=== PATIENT | female | born 1965 | race Caucasian/White ===

== ENCOUNTER → 2019-03-21 | Outpatient (CLI) | payer BC | LOC: LAB.O 08:54 | PROVIDERS: ATTEND Orthopaedic Surgery | DX: Z01.818 Encounter for other preprocedural examination (principal) ==

== ENCOUNTER → 2019-04-06 | Outpatient (CLI) | payer BC ==
--- NOTE | 2019-04-06 09:25 | RAD ---
EXAM DESCRIPTION: Knee,Right Complete: CR/DR/XR. CLINICAL HISTORY: 53 years FemalePAIN IN RIGHT KNEE COMPARISON: None. TECHNIQUE: 4 views AP and PA right knee standing. Lateral standing and patellofemoral sunrise view. FINDINGS: Right medial compartment is [id number] with marginal spurs. Medial subluxation of the right femur on the tibia. Lateral compartmental marginal spurs and tibial spine spurs. Prominent trochlear spurs and superior and inferior marginal spurs abutting the patellofemoral joint with medial and lateral spaces symmetric. No fractures. No abnormal radiodense objects in the soft tissues. IMPRESSION: Tricompartmental osteoarthritis right knee, severe and advanced in the medial compartment, which is [id number]. Minimal joint effusion. Electronically signed by: Chapito Aquino MD 04/06/2019 9:23 AM CDT
== END ==
LOC: RAD 08:42
PROVIDERS: ATTEND Orthopaedic Surgery
DX: M17.11 Unilateral primary osteoarthritis, right knee (principal); M25.461 Effusion, right knee

== ENCOUNTER 2019-04-17 05:38 | Inpatient (IN) | payer BC ==
--- NOTE | 2019-04-16 08:15 | HP ---
CHIEF COMPLAINT: Right knee pain. HISTORY OF PRESENT ILLNESS: Yen is a 53-year-old female who has a history of severe pain. She has had this going on at least 2-1/2 years. The pain today ranges at a 5. It has been chronic and was atraumatic in onset. Alleviating factors include rest and sitting. Aggravating factors include walking, exercise and stairs. Associated symptoms have included swelling and there have been no other surgeries. Injections help very minimally. There was some preoperative physical therapy, however, that did not give any relief. Although it is causing discuss daily, Yen has been able to continue to work. Because of ongoing pain, she has requested operative intervention. After discussing the risks, benefits and alternatives to total knee arthroplasty, she has given informed consent. PAST SURGICAL HISTORY: 1. times 2. 2. Hysterectomy. 3. Oophorectomy. 4. Cholecystectomy. MEDICATIONS: 1. Amlodipine. 2. Gabapentin. 3. Potassium. 4. Naprosyn. 5. Cymbalta. PAIN CONTRACT: None. ALLERGIES: VERSED, ZANAFLEX, HIBICLENS, FORTAZ. CODE STATUS: Full code. IMMUNIZATIONS: Up to date. SOCIAL HISTORY: Yen does smoke about one pack a day, does not drink and uses no illicit drugs. FAMILY HISTORY: None pertinent to today's complaint. REVIEW OF SYSTEMS: Negative except as indicated in the History of Present Illness. HEENT: The patient reports no symptoms. RESPIRATORY: The patient reports no symptoms. CARDIOVASCULAR: The patient reports no symptoms. GASTROINTESTINAL: The patient reports no symptoms GENITOURINARY: The patient reports no symptoms. MUSCULOSKELETAL: Negative except as noted in History of Present Illness. SKIN: The patient reports no symptoms. NEUROLOGIC: The patient reports no symptoms. PHYSICAL EXAMINATION: MENTAL STATUS: The patient is awake, alert, and is able to give a good history and participate in the physical. The patient is oriented to person, place and time. SKIN: Normal tone and turgor. HEENT: Normocephalic, atraumatic. Pupils equal, round and reactive. Mucosal membranes are moist. NECK: Normal range of motion. No thyromegaly, no lymphadenopathy. CHEST: Normal respiratory excursion. CARDIAC: Regular rate and rhythm. No murmurs, rubs or gallops. MUSCULOSKELETAL: The bilateral upper extremities show full active painless range of motion. There is intact sensation throughout. There is no deformity or malalignment. She has negative belly press, negative drop-arm test, negative Neer and negative Olsen. Reflexes are 2+ and equal bilaterally. The left lower extremity shows full range of motion of the hip. There is range of motion to full extension with flexion to about 115 degrees. There is negative anterior and posterior drawer. There is no laxity in varus or valgus. The ankle and digits show full range of motion. Strength is 5/5. The right lower extremity shows full range of motion of the hip, ankle and digits. There is full extension today with flexion to about 115 degrees. There is negative anterior and posterior drawer. There is no laxity in varus or valgus. There is negative anterior and posterior drawer. There is tenderness along the joint-line. There is moderate effusion. There is crepitus throughout the range of motion. There is severe pain with patellar mobilization. She walks with a slight antalgic gait secondary to pain. RADIOLOGY: My interpretation of the x-rays shows severe arthritis. ASSESSMENT: 1. Osteoarthritis. PLAN: The plan at this point is for total knee arthroplasty. We have discussed the risks, benefits, and alternatives to that and the patient has given informed consent. [facility][id number] [facility]
[2019-04-17] MEDS ORDERED: SODIUM CHL 0.9% 100ML MINI-BAG 100 ML IVPB ONE (05:54)
[2019-04-17] MEDS ORDERED: TRANEXAMIC ACID 1,000 MG/10 ML VIAL ONE ×2 (05:54→05:55)
[2019-04-17] MEDS ORDERED: VANCOMYCIN HCL INJ 1,000 MG VIAL IVPB ONE ×4 (05:54→19:24)
[2019-04-17] MEDS ORDERED: ceFAZolin SODIUM 1 GM VIAL ONE ×2 (05:54→06:29)
[2019-04-17] MEDS ORDERED: LACTATED RINGERS 1,000 ML ONE (05:54)
[2019-04-17] MEDS ORDERED: SODIUM CHLORIDE 0.9% 100ML 100 ML IVPB ONE (05:55)
[2019-04-17] MEDS ORDERED: SODIUM CHLORIDE 0.9% 250ML 250 ML ONE ×3 (05:55→19:24)
[2019-04-17] MEDS ORDERED: diazePAM 5 MG TAB ONE (06:07)
[2019-04-17] MEDS ORDERED: BUPIVACAINE LIPOSOME 13.3 MG/ML VIAL INJ ONE (06:30)
[2019-04-17] MEDS ORDERED: BUPIVACAINE 0.5% 30 ML VIAL INJ ONE (06:30)
[2019-04-17] MEDS ORDERED: KETAMINE HCL 100 MG/ML VIAL ONE (06:31)
[2019-04-17] MEDS ORDERED: ACETAMINOPHEN IV 1000MG 100 ML ONE (06:31)
[2019-04-17] MEDS ORDERED: fentaNYL CITRATE INJ 50 MCG/ML AMP ONE (06:32)
[2019-04-17] MEDS ORDERED: MORPHINE SULFATE *EPIDURAL* 0.5 MG/ML VIAL ONE (06:32)
[2019-04-17] MEDS ORDERED: MORPHINE SULFATE INJ 10 MG/ML VIAL IM PRN (07:00)
[2019-04-17] MEDS ORDERED: PROMETHAZINE HCL INJ 25 MG in SODIUM CHLORIDE 0.9% 50ML 50 ML IVPB PRN (07:00)
[2019-04-17] MEDS ORDERED: TRANEXAMIC ACID INJ 1,000 MG in SODIUM CHLORIDE 0.9% 100ML 100 ML IVPB ONE (07:00)
[2019-04-17] MEDS ORDERED: TEMAZEPAM 15 MG CAP PO PRN (07:00)
[2019-04-17] MEDS ORDERED: ZOLPIDEM TARTRATE 5 MG TAB PO PRN (07:00)
[2019-04-17] MEDS ORDERED: ACETAMINOPHEN 500 MG TAB PO PRN (07:00)
[2019-04-17] MEDS ORDERED: MORPHINE PCA 1 MG/ML 100 ML BAG IVPB SCH (07:00)
[2019-04-17] MEDS ORDERED: BISACODYL SUPPOSITORY 10 MG PR PRN (07:00)
[2019-04-17] MEDS ORDERED: ACETAMINOPHEN 325 MG TAB PO PRN (07:00)
[2019-04-17] MEDS ORDERED: NALOXONE HCL INJ 0.4 MG/ML VIAL IV PRN (07:00)
[2019-04-17] MEDS ORDERED: ALUMINUM & MAGNESIUM HYDROXIDE 30 ML UD PO PRN (07:00)
[2019-04-17] MEDS ORDERED: MAGNESIUM HYDROXIDE 30 ML UD PO PRN (07:00)
[2019-04-17] MEDS ORDERED: BENZOCAINE-MENTH LOZ (CEPACOL) 1 EA LOZ MT PRN (07:00)
[2019-04-17] MEDS ORDERED: SODIUM CHLORIDE 0.9% (FLUSH) 10 ML SYG IV PRN (07:00)
[2019-04-17] MEDS ORDERED: PROMETHAZINE HCL INJ 12.5 MG in SODIUM CHLORIDE 0.9% 50ML 50 ML IVPB PRN (07:00)
[2019-04-17] MEDS ORDERED: ONDANSETRON INJ 4 MG/2 ML VIAL IV PRN (07:00)
[2019-04-17] MEDS ORDERED: ROCURONIUM BROMIDE 10 MG/ML VIAL ONE (07:07)
[2019-04-17] MEDS ORDERED: ELECTROLYTE-A 1,000 ML IVS ONE (08:41)
[2019-04-17] MEDS ORDERED: LEVALBUTEROL NEBS 1.25 MG/3 ML VIAL NEB ONE (09:53)
[2019-04-17] MEDS ORDERED: MAGNESIUM SULFATE INJ 1 GM/2 ML VIAL IVPB ONE (10:00)
[2019-04-17] MEDS ORDERED: LIDOCAINE 1% 10 ML VIAL INJ ONE (10:00)
[2019-04-17] MEDS ORDERED: PROPOFOL 200 MG/20 ML VIAL IV ONE (10:00)
[2019-04-17] MEDS ORDERED: DEXAMETHASONE INJ 10 MG/ML VIAL IV ONE (10:00)
[2019-04-17] MEDS ORDERED: PHENYLEPHRINE INJ 1ML 10 MG/ML VIAL IV ONE (10:00)
[2019-04-17] MEDS ORDERED: SODIUM CHLORIDE 0.9% 50 ML VIAL INJ ONE (10:00)
[2019-04-17] MEDS ORDERED: raNITIdine HCL INJ 25 MG/ML VIAL IV ONE (10:00)
[2019-04-17] MEDS: IV SET AND CAP CHANGE INJ INJ SCH (11:31)
[2019-04-17] MEDS: MAGNESIUM OXIDE 400 MG TAB PO SCH (11:32)
--- NOTE | 2019-04-17 11:39 | CONS ---
SUPERVISING PHYSICIAN: Og Ford MD DATE OF CONSULTATION: 04/17/19 REASON FOR CONSULTATION: Medical management. HISTORY OF PRESENT ILLNESS: This is a 53-year-old female who underwent elective right total knee arthroplasty today. There were no reported intraoperative complications. The patient has longstanding right knee osteoarthritis which failed conservative measures for at least the 2-1/2 years or so. For that reason, she underwent the surgical procedure. Currently, she is awake and alert postoperatively with no significant pain secondary to the spinal anesthesia that she received. PAST MEDICAL HISTORY: 1. Hypertension. 2. Gastroesophageal reflux disease. 3. Obesity. 4. Continuous nicotine dependency. 5. Obstructive sleep apnea. PAST SURGICAL HISTORY: 1. times 2. 2. Hysterectomy. 3. Bilateral salpingo-oophorectomy. 4. Cholecystectomy. MEDICATIONS: Please see medication reconciliation record in the computer. ALLERGIES: VERSED, ZANAFLEX, HIBICLENS, FORTAZ. FAMILY HISTORY: Reviewed and is noncontributory to this current medical condition. SOCIAL HISTORY: The patient is a smoker. No alcohol, no illicit drug drugs. She smokes one pack per day. PHYSICAL EXAMINATION: VITAL SIGNS: Blood pressure 126/73. Heart rate 95. Respiratory rate 20. Temperature 79.2. Oxygen saturation 93%. GENERAL: Ms. Sanchez is a 53-year-old female in no active distress. NEUROLOGIC: The patient is alert and oriented. LUNGS: Clear to auscultation bilaterally. CARDIOVASCULAR: Regular rate and rhythm. Normal S1, S2. ABDOMEN: Soft. Positive bowel sounds. EXTREMITIES: The right knee is wrapped in an Juan with the ice pack in place. Peripheral pulses are 2+. Capillary refill less than 2 seconds. ASSESSMENT: 1. Right knee osteoarthritis status post right total knee arthroplasty, postoperative day 0. 2. Hypertension. 3. Gastroesophageal reflux disease. 4. Obstructive sleep apnea. PLAN: At this time, the patient will undergo physical therapy and pain control with postoperative order from orthopedic procedure. She will start anticoagulation 12 hours after the surgical intervention. We will resume her home medications once they are verified in the computer as well. We will recheck hemoglobin and hematocrit tomorrow. We will continue to evaluate on a daily basis for physical therapy needs. Given her sleep apnea, she will need to utilize her CPAP device at night as well. [facility][id number] [facility]
--- NOTE | 2019-04-17 12:05 | RAD ---
EXAM DESCRIPTION: Knee,Right 1 or 2 Views CLINICAL HISTORY: 53 years, Female, TKA COMPARISON: Radiograph 04/06/2019 TECHNIQUE: Frontal and lateral views of the right knee FINDINGS/IMPRESSION: Recent postoperative changes of right total knee arthroplasty in satisfactory alignment without perihardware fracture or evidence of hardware complication. Expected postsurgical gas and soft tissue changes. Electronically signed by: Kevin Cordova DO 04/17/2019 12:00 PM CDT
[2019-04-17] MEDS ORDERED: ceFAZolin SODIUM 2 GRAMS PREMI 50 ML IVPB ONE ×2 (15:34→19:24)
[2019-04-17] MEDS: DEX 5% W/NACL 0.45% 1000ML 1,000 ML IVS PRN (15:38)
[2019-04-17] MEDS: ceFAZolin SODIUM 2 GRAMS PREMI 2 GM in PREMIX BAG 1 BAG IVPB SCH (15:42)
[2019-04-17] MEDS: VANCOMYCIN HCL INJ 1,000 MG in SODIUM CHLORIDE 0.9% 250ML 250 ML IVPB SCH (17:23)
[2019-04-17] MEDS: CELECOXIB 100 MG CAP PO SCH (17:24)
[2019-04-17] MEDS ORDERED: ENOXAPARIN SODIUM 30 MG/0.3 ML SYG SUBCU ONE (19:24)
[2019-04-17] MEDS: CYCLOBENZAPRINE HCL 10 MG TAB PO PRN (19:48)
[2019-04-17] MEDS: DOCUSATE CALCIUM 240 MG CAP PO SCH (20:02)
[2019-04-17] MEDS: ENOXAPARIN SODIUM 30 MG/0.3 ML SYG SUBCU SCH (22:43)
[2019-04-18] MEDS: ceFAZolin SODIUM 2 GRAMS PREMI 2 GM in PREMIX BAG 1 BAG IVPB SCH ×2 (00:06→08:42)
[2019-04-18] MEDS: VANCOMYCIN HCL INJ 1,000 MG in SODIUM CHLORIDE 0.9% 250ML 250 ML IVPB SCH (06:15)
[2019-04-18] MEDS ORDERED: ceFAZolin SODIUM 2 GRAMS PREMI 50 ML IVPB ONE (07:20)
[2019-04-18] MEDS: CELECOXIB 100 MG CAP PO SCH ×2 (07:25→16:32)
[2019-04-18] MEDS: traMADol HCL 50 MG TAB PO PRN (07:25)
--- NOTE | 2019-04-18 07:56 | OP ---
DATE OF PROCEDURE: 04/17/19 PREOPERATIVE DIAGNOSIS: 1. Right knee osteoarthritis. POSTOPERATIVE DIAGNOSIS: 1. Right knee osteoarthritis. PROCEDURE: 1. Total knee arthroplasty. SURGEON: Leoncio Pope MD. PIT RECORDER: Chapito Gonzalez CST, SA-C. ANESTHESIA: General anesthesia. COMPLICATIONS: None. FINDINGS: Severe osteoarthritis. INDICATION: Ms. Sanchez has a history of severe pain and has been unable to get relief from it. Because of the pain and the failure of conservative measures, she has requested operative intervention. After discussing the risks, benefits and alternatives to that, the patient has given informed consent for total knee arthroplasty. PROCEDURE: The patient was brought to the Operating Room and placed in supine position. General anesthesia was induced and the patient's leg was sterilely prepped and draped. Following prepping and draping, the distal femur was exposed and using an intramedullary guide, the distal femoral cut was made. The appropriate sized cutting block was measured, pinned into place, and the anterior, posterior, and chamfer cuts were made. The ACL was transected and the tibia was subluxed. Both the medial and lateral menisci were removed. An intramedullary guide was used to make the proximal tibial cut. The appropriate sized base plate was placed and a trial polyethylene was placed. The trial femur was placed, the knee was reduced, and the knee was taken through a range of motion. The knee was stable in anterior, posterior, varus and valgus stress. The patella tracked anatomically without evidence of subluxation or dislocation. After trialing, the trial components were removed and the bony surfaces were thoroughly irrigated with saline. Following irrigation, the surfaces were dried and the final components were cemented into place. The excess cement was removed and the remaining cement was allowed to cure. The knee was again taken through a range of motion to confirm stability. The wound was then irrigated with saline and closure was performed using PDS to approximate the arthrotomy followed by closure of the subcutaneous tissues with a combination of running and interrupted Monocryl sutures. Sterile dressing was placed. The patient was awoken from anesthesia and taken to Recovery. POSTOPERATIVE PLAN: The patient will be weight-bearing as tolerated on postoperative day 1. COMPONENTS: StelKast knee, size 3.5 femur, size 3 tibia, 11 mm insert. #[id number] [facility]
[2019-04-18] MEDS: MAGNESIUM OXIDE 400 MG TAB PO SCH (08:42)
--- NOTE | 2019-04-18 08:42 | RAD ---
EXAM DESCRIPTION: Fluoroscopy Up to 1Hr CLINICAL HISTORY: 53 years Female, TKA COMPARISON: Right knee radiographs 04/06/2019 IMPRESSION: Multiple intraoperative fluoroscopic images saved for the benefit of the surgeon. Total right knee arthroplasty. Please see procedure report for full details. Fluoroscopy time: 1 second Fluoroscopic images: 1 Electronically signed by: Vernon Rangel MD 04/18/2019 8:40 AM CDT
[2019-04-18] MEDS: MORPHINE SULFATE INJ 10 MG/ML VIAL IV PRN (09:03)
[2019-04-18] MEDS: CYCLOBENZAPRINE HCL 10 MG TAB PO PRN ×2 (09:03→20:27)
[2019-04-18] MEDS: ENOXAPARIN SODIUM 30 MG/0.3 ML SYG SUBCU SCH ×2 (10:40→22:56)
[2019-04-18] MEDS ORDERED: ACETAMINOPHEN IV 1000MG 1,000 MG in PREMIX BOTTLE 1 BOTTLE IVPB ONE (12:40)
[2019-04-18] MEDS ORDERED: ACETAMINOPHEN IV 1000MG 100 ML ONE (12:50)
--- NOTE | 2019-04-18 13:08 | PN ---
DATE: 04/18/19 SUBJECTIVE: Ms. Sanchez is doing well. She is about to undergo physical therapy. OBJECTIVE: Afebrile. Vital signs stable. Dressing is clean, dry and intact. ASSESSMENT: Status post total knee arthroplasty. PLAN: The plan at this point is for weightbearing as tolerated starting today. #[id number] [facility]
--- NOTE | 2019-04-18 13:10 | PN ---
DATE: 04/17/19 POSTOPERATIVE CHECK SUBJECTIVE: Ms. Sanchez is doing really well and has no pain at this time. OBJECTIVE: Afebrile. Vital signs stable. Dressing is clean, dry and intact. ASSESSMENT: Status post total knee arthroplasty. PLAN: The plan at this point is to begin weightbearing as tolerated on postoperative day 1. #[id number] [facility]
[2019-04-18] MEDS ORDERED: GABAPENTIN 300 MG CAP ONE (14:38)
[2019-04-18] MEDS: GABAPENTIN 300 MG CAP PO SCH ×2 (14:47→20:24)
--- NOTE | 2019-04-18 17:59 | PN ---
DATE: 04/18/19 SUPERVISING PHYSICIAN: Og Ford M.D. SUBJECTIVE: The patient states she is having a little bit of pain this morning. She thinks it may be secondary to the ice pack that is on there and that she forgot to get up for physical therapy as well. OBJECTIVE: VITAL SIGNS: Blood pressure 143/75, heart rate 88, respiratory rate 18, temperature 98.3, oxygen saturation 96%. GENERAL: Ms. Sanchez is a 53 year-old female in no active distress currently. NEUROLOGIC: The patient is alert and oriented. LUNGS: Clear to auscultation bilaterally. CARDIOVASCULAR: Regular rate and rhythm. Normal S1 and S2. ABDOMEN: Soft. Positive bowel sounds. EXTREMITIES: Right knee in an Juan type bandage. Ice pack is currently on as well. Peripheral pulses are 2+, capillary refill less than 2 seconds. She has full sensation. LABORATORY: Hemoglobin 12.6, hematocrit 38.1. ASSESSMENT: 1. Right knee osteoarthritis status post right total knee arthroplasty, postoperative day #1. 2. Hypertension. 3. Gastroesophageal reflux disease. 4. Obstructive sleep apnea. PLAN: Will continue postoperative orders including physical therapy and pain control as well as anticoagulation. Home medications have been resumed. Will continue to monitor on a daily basis for progress regarding physical therapy. [facility][id number] [facility]
[2019-04-18] MEDS: DEX 5% W/NACL 0.45% 1000ML 1,000 ML IVS PRN (19:32)
[2019-04-18] MEDS: DOCUSATE CALCIUM 240 MG CAP PO SCH (20:24)
[2019-04-19] MEDS: MORPHINE SULFATE INJ 10 MG/ML VIAL IV PRN ×2 (04:36→06:11)
[2019-04-19] MEDS: traMADol HCL 50 MG TAB PO PRN (06:11)
--- NOTE | 2019-04-19 08:12 | PN ---
DATE: 04/19/19 SUBJECTIVE: Ms. Sanchez is doing pretty well, but she does have some pain medially. Otherwise, she is without complaint. OBJECTIVE: Afebrile. Vital signs stable. Wound is clean. There are no signs or symptoms of infection. ASSESSMENT: Status post total knee arthroplasty. PLAN: The plan at this point is for her to continue weightbearing as tolerated. #[id number] [facility]D
[2019-04-19] MEDS: CELECOXIB 100 MG CAP PO SCH ×2 (08:39→16:37)
[2019-04-19] MEDS: CYCLOBENZAPRINE HCL 10 MG TAB PO PRN ×2 (08:39→23:32)
[2019-04-19] MEDS: ACETAMINOPHEN W/COD #3 TAB 1 EA TAB PO PRN ×3 (08:39→20:55)
[2019-04-19] MEDS: MAGNESIUM OXIDE 400 MG TAB PO SCH (08:52)
[2019-04-19] MEDS: amLODIPine BESYLATE 5 MG TAB PO SCH (08:53)
[2019-04-19] MEDS: DULoxetine HCL 30 MG CAP PO SCH (08:53)
[2019-04-19] MEDS: GABAPENTIN 300 MG CAP PO SCH ×3 (08:53→20:46)
[2019-04-19] MEDS: SODIUM CHLORIDE 0.9% (FLUSH) 10 ML SYG IV SCH ×2 (08:53→20:46)
[2019-04-19] MEDS: ENOXAPARIN SODIUM 30 MG/0.3 ML SYG SUBCU SCH ×2 (11:20→22:57)
--- NOTE | 2019-04-19 19:28 | PN ---
DATE: 04/19/19 SUPERVISING PHYSICIAN: Og Ford M.D. SUBJECTIVE: The patient is doing well in her rehabilitation efforts. She says her pain has been controlled. She has had no other complaints. She is tolerating diet. OBJECTIVE: VITAL SIGNS: Temperature 98.7, pulse 83, blood pressure 165/81, respirations 18, satting 96% on nasal cannula or 91% on room air. GENERAL: The patient is resting comfortably. Appears to be in no acute distress. CHEST: Clear to auscultation. HEART: Regular rate and rhythm. ABDOMEN: Soft, non-tender. Positive bowel sounds. EXTREMITIES: Right knee has an island dressing in place which is clean and dry with no signs of infection. Distally pulses are strong, capillary refill brisk. NEUROLOGIC: She is alert and oriented times three. LABORATORY: No additional laboratory studies. RADIOLOGY: No additional radiographic studies. ASSESSMENT: 1. Right knee osteoarthritis status post right total knee arthroplasty, postoperative day #2. 2. Hypertension. 3. Gastroesophageal reflux disease. 4. Obstructive sleep apnea. PLAN: Will continue to follow the patient as she progresses through her physical therapy and rehabilitation efforts. Will continue with pain management as needed. Will anticipate discharging tomorrow. Until then will continue to monitor and treat as needed. [facility][id number] [facility]
[2019-04-19] MEDS: DOCUSATE CALCIUM 240 MG CAP PO SCH (20:47)
[2019-04-20] MEDS: ACETAMINOPHEN W/COD #3 TAB 1 EA TAB PO PRN ×2 (05:43→13:38)
[2019-04-20] MEDS: CELECOXIB 100 MG CAP PO SCH (07:50)
[2019-04-20] MEDS: IV SET AND CAP CHANGE INJ INJ SCH (07:52)
[2019-04-20] MEDS: SODIUM CHLORIDE 0.9% (FLUSH) 10 ML SYG IV SCH (09:28)
[2019-04-20] MEDS: DULoxetine HCL 30 MG CAP PO SCH (09:28)
[2019-04-20] MEDS: amLODIPine BESYLATE 5 MG TAB PO SCH (09:28)
[2019-04-20] MEDS: GABAPENTIN 300 MG CAP PO SCH (09:29)
[2019-04-20] MEDS: MAGNESIUM OXIDE 400 MG TAB PO SCH (09:29)
[2019-04-20] MEDS: traMADol HCL 50 MG TAB PO PRN (09:30)
[2019-04-20] MEDS: ENOXAPARIN SODIUM 30 MG/0.3 ML SYG SUBCU SCH (10:53)
[2019-04-20 15:09] VITALS: BP 117/78; TEMP 97.5; O2SAT 95
--- NOTE | 2019-04-20 20:35 | DS ---
SUPERVISING PHYSICIAN: Og Ford M.D. ADMISSION DIAGNOSIS: 1. Right knee osteoarthritis status post right total knee arthroplasty, postoperative day 0. 2. Hypertension. 3. Gastroesophageal reflux disease. 4. Obstructive sleep apnea. DISCHARGE DIAGNOSIS: 1. Right knee osteoarthritis status post right total knee arthroplasty, postoperative day #3. 2. Hypertension. 3. Gastroesophageal reflux disease. 4. Obstructive sleep apnea. REASON FOR HOSPITALIZATION: This is a 53-year-old female who underwent elective right total knee arthroplasty today. There were no reported intraoperative complications. The patient has longstanding right knee osteoarthritis which failed conservative measures for at least the 2-1/2 years or so. For that reason, she underwent the surgical procedure. Currently, she is awake and alert postoperatively with no significant pain secondary to the spinal anesthesia that she received. LABORATORY STUDIES: Postoperative H&H was 12.6 and 38.1 respectively with urine toxicology screen being negative. PROCEDURE: 1. Total right knee arthroplasty performed by Dr. Leoncio Pope. Please see his report for details. CONSULTATION: Hospitalist Service. Please see Loco Pope for his medical consultation. HOSPITAL COURSE: Ms. Sanchez was admitted for elective total right knee arthroplasty on 04/17/19. She had no intraoperative complications. She had good recovery and was able to participate with Physical Therapy. She was tolerating pain and having good control with pain management. She was passing gas and having bowel movements and tolerating oral intake. It was felt that on 04/20/19 she progressed well enough to continue with outpatient management with physical therapy to continue through [facility] rehab on Tuesday after discharge. DISCHARGE PHYSICAL ASSESSMENT: VITAL SIGNS: Temperature 97.6, pulse 97, blood pressure 134/81, respirations 18, satting 96% on room air. CHEST: Clear to auscultation. HEART: Regular rate and rhythm. ABDOMEN: Soft, non-tender. Positive bowel sounds. EXTREMITIES: Right knee had a dressing in place which is clean and dry with no signs of infection. Distally pulses are strong, capillary refill brisk. NEUROLOGIC: She is alert and oriented times three. PLAN: Ms. Sanchez was discharged on 04/20/19 with instructions to followup with Dr. Pope on 05/04/19 at 9:15 in the morning. She was to resume her usual diet as tolerated. Activity is as tolerated for physical therapy, utilize a walker. She could shower but no tub bath and wound care was per Dr. Pope's instructions. Medications on discharge included: 1. Tylenol #3 one every 4 hours as needed for pain, #50, written by Dr. Pope. No refills. 2. Xarelto 10 mg daily, #8. No refills. All other medications were continued as is. DISCHARGE DISPOSITION: The patient was discharged home. Condition on discharge was stable and improved. #[id number] [facility]D
[2019-04-20] MEDS ORDERED: BISACODYL SUPPOSITORY 10 MG PR ONE (21:00)
[2019-04-20] MEDS ORDERED: MAGNESIUM HYDROXIDE 30 ML UD PO ONE (21:00)
--- NOTE | 2019-04-21 14:37 | PN ---
DATE: 04/20/19 SUBJECTIVE: Ms. Sanchez is doing well and has no complaints. OBJECTIVE: She is afebrile. Vital signs are stable. Wound is clean. There are no signs or symptoms of infection. ASSESSMENT: 1. Status post total knee arthroplasty. PLAN: The plan at this point is for her to continue on with range of motion and weightbearing as tolerated. [facility][id number] [facility]
== END 2019-04-20 15:18 | disposition home or self-care (01) | DRG 470 ==
LOC: AMB 05:38 → MS 10:45
PROVIDERS: ADMIT Orthopaedic Surgery; ATTEND Nurse Practitioner Family
PROC: 3E0T3BZ Introduction of Anesthetic Agent into Peripheral Nerves and Plexi, Percutaneous Approach (ICD-10-PCS; 2019-04-17)
PROC: 0SRC0J9 Replacement of Right Knee Joint with Synthetic Substitute, Cemented, Open Approach (ICD-10-PCS; principal; 2019-04-17 08:00)
DX: M17.11 Unilateral primary osteoarthritis, right knee (principal); I10 Essential (primary) hypertension; K21.9 Gastro-esophageal reflux disease without esophagitis; G47.33 Obstructive sleep apnea (adult) (pediatric); F17.210 Nicotine dependence, cigarettes, uncomplicated; E66.9 Obesity, unspecified; Z79.1 Long term (current) use of non-steroidal anti-inflammatories (NSAID); Z79.899 Other long term (current) drug therapy; Z68.39 Body mass index [BMI] 39.0-39.9, adult